=== PATIENT | male | born 1985 | race Caucasian/White ===

== ENCOUNTER 2020-08-17 08:33 | Observation (INO) | payer OTHER, MEDICAID, SELFPAY ==
[2020-08-17] VITALS (22 sets, daily range): BP systolic 112–151; BP diastolic 57–84; PULSE 61–91; RESP 13–18; TEMP 36.2–36.8; O2SAT 94–100; BMI 23.7
--- NOTE | 2020-08-17 | PATH_ITS ---
[facility] Accession Number: [id number] . 01 Material submitted: . appendix - APPENDIX . 02 Diagnosis: Appendix, Appendectomy: Acute suppurative appendicitis with serositis. Inked resection margin shows marked active inflammation and ischemia-type changes. Negative for dysplasia or malignancy. [facility] 08/23/2020 1501 Local . 02 Electronically signed: . Sharri Bryant MD, Pathologist NPI- [id number] . 01 Gross description: . The specimen is received in formalin, labeled appendix and consists of a 6.0 cm in length by 1.5 cm in diameter vermiform appendix with attached vines-yellow lobulated mesoappendix measuring 5.0 x 1.5 x 1.0 cm. The serosa is vines-pink and smooth. The margin is disrupted and open. Sectioning reveals a lumen measuring 0.5 cm in diameter, which contains brown fecal material. Die Operator sections are submitted to include the en face margin (blue), central cross-sections and bisected tips in cassettes A1-A2. (EA:[id number]) /MRV 08/22/2020 1432 Local . 02 Pathologist provided ICD-10: K35.80 . 02 CPT . 660856 Performed at: 01 [facility] [address], [place], [place] [id number] MD Carlos Porter MD Phone: [phone] Performed at: 02 [facility] [address] [place], [place] [id number] MD Sharri Bryant MD Phone: [phone]
--- NOTE | 2020-08-17 09:05 | ED_ITS ---
HPI - General Adult General Chief complaint: Abdominal Pain Stated complaint: abd pain, thinks appendix Time Seen by Provider: 08/17/20 08:37 Source: patient Mode of arrival: Ambulatory Limitations: no limitations History of Present Illness HPI narrative: Patient is a 34-year-old otherwise healthy male with no prior abdominal surgeries here for evaluation of right lower quadrant abdominal pain. He states that 2 or 3 days ago he started having pain around his belly button. During this time he did not have any fevers but reported no appetite. No change in bowel habits or urine habits during this time. Has had some nausea but no vomiting. He states that within the past 8-12 hours the pain has now radiated down to his right lower quadrant. He states that his appetite did return somewhat this morning and he ate approximately 1 hour prior to arrival here in the ER. Again reports no change in urine or bowel movements. No testicular pain. Related Data Home Medications Medication Instructions Recorded Confirmed dextroamphetamine-amphetamine 20 mg PO TID 08/17/20 08/17/20 hydroxyzine HCl 25 mg PO BID PRN 08/17/20 08/17/20 quetiapine 50 mg PO BEDTIME 08/17/20 08/17/20 tizanidine 4 mg PO TID PRN 08/17/20 08/17/20 Previous Rx's Medication Instructions Recorded docusate sodium 100 mg PO BID #20 cap 08/17/20 oxycodone 5 mg PO Q6H PRN #20 tab 08/17/20 Allergies Allergy/AdvReac Type Severity Reaction Status Date / Time amoxicillin Allergy Severe Anaphylaxis Verified 08/17/20 12:34 Penicillins Allergy Severe Anaphylaxis Verified 08/17/20 12:34 Review of Systems Constitutional Constitutional: Denies fever(s) and Denies headache(s) ENT Ears, Nose, Mouth, and Throat: Denies headache(s) Cardiovascular Cardiovascular: Denies chest pain and Denies dyspnea Respiratory Respiratory: Denies dyspnea Gastrointestinal Gastrointestinal: Reports abdominal pain, Denies change in bowel habits, Denies constipation, Denies diarrhea, Reports nausea and Denies vomiting Genitourinary Genitourinary: Denies dysuria, Denies urinary incontinence and Denies urinary urgency Genitourinary: Denies dysuria, Denies urinary incontinence and Denies urinary urgency Musculoskeletal Musculoskeletal: Denies back pain Integumentary/Breasts Skin/Breast: Denies lesions and Denies rash Neurologic Neurologic: Denies behavioral changes and Denies headache(s) Psychiatric Psychiatric: Denies behavioral changes Hematologic/Lymphatic On Anticoagulants: No Allergic/Immunologic Allergic/Immunologic: Denies urticaria Patient History Medical History ADHD Anxiety Bipolar depression Smoker Social History household members: spouse Smoking Status: Current every day smoker alcohol intake: former Exam Initial Vital Signs Initial Vital Signs: Vital Signs Temperature 98.3 F 08/17/20 08:59 Pulse Rate 91 H 08/17/20 08:59 Respiratory Rate 17 08/17/20 08:59 Blood Pressure 151/79 H 08/17/20 08:59 Pulse Oximetry 100 08/17/20 08:59 Const General: cooperative and comfortable Limitations: mental status not altered HENMT Head: normal to inspection and normocephalic Resp Effort & Inspection: normal respiratory effort Auscultation: clear to auscultation bilaterally Cardio Rate: regular rate Rhythm: regular rhythm GI Inspection: non-distended Palpation: soft, No firm and tender (Right lower quadrant with rebounding guarding) Back/Spine/Pelvis Back: No CVA tenderness Skin Lesions: no lesions Rashes: no rashes Neuro General: patient alert Cognition: normal cognition Speech: speech normal Extrem General: capillary refill normal Psych Appearance: grossly normal and well kempt Course Orders Ordered: Discontinued Medications Acetaminophen (Acetaminophen 325 Mg Tablet) 975 mg PO NOW ONE Stop: 08/17/20 12:57 Last Admin: 08/17/20 13:18 Dose: 975 mg Documented by: JHONATAN Albuterol (Albuterol 2.5 Mg/3 Ml Neb (Adult)) 2.5 mg INH NOW PRN PRN Reason: Coughing, Wheezing, Dyspnea Benzocaine (Benzocaine/Menthol 1 Vin Pkt) 1 each PO PRN PRN PRN Reason: Sore Throat Bupivacaine HCl/Epinephrine Bitart (Bupivacaine 0.5% W/ Epi (Pf) 30 Ml Vial) 30 ml INJ NOW ONE Stop: 08/17/20 14:16 Last Admin: 08/17/20 14:15 Dose: 30 ml Documented by: HUGH Hydromorphone HCl (Hydromorphone 0.5 Mg Inj) 0.5 mg IV NOW ONE Stop: 08/17/20 11:17 Last Admin: 08/17/20 12:12 Dose: 0.5 mg Documented by: CATRACHITA Hydromorphone HCl (Hydromorphone 2 Mg Inj) 0 mg IV Q5M PRN PRN Reason: Pain, Moderate (4-6) Hydromorphone HCl (Hydromorphone 2 Mg Inj) 0 mg IV Q5M PRN PRN Reason: pain Hydroxyzine HCl (Hydroxyzine 50 Mg/Ml Inj) 25 mg IM NOW PRN PRN Reason: Pain, Mild (1-3) Sodium Chloride (Normal Saline 0.9%) 1,000 mls @ 125 mls/hr IV CONT LAZARA Last Infusion: 08/17/20 12:15 Dose: 0 mls/hr Documented by: Admin: 08/17/20 09:25 Dose: 125 mls/hr Documented by: JAMEE Clindamycin Phosphate (Cleocin) 900 mg in 50 mls @ 50 mls/hr IV NOW ONE Stop: 08/17/20 12:07 Last Infusion: 08/17/20 13:11 Dose: 0 mls/hr Documented by: Infusion: 08/17/20 12:15 Dose: 0 mls/hr Documented by: Admin: 08/17/20 12:04 Dose: 50 mls/hr Documented by: CATRACHITA Metronidazole (Flagyl) 500 mg in 100 mls @ 100 mls/hr IV NOW ONE Stop: 08/17/20 12:15 Ceftriaxone Sodium/Dextrose (Rocephin) 1 gm in 50 mls @ 100 mls/hr IV NOW ONE Stop: 08/17/20 11:46 Lactated Ringer's (Lactated Ringers) 1,000 mls @ 42 mls/hr IV NOW ONE Stop: 08/18/20 12:14 Last Admin: 08/17/20 15:02 Dose: 42 mls/hr Documented by: JOSE ANGEL Infusion: 08/17/20 15:02 Dose: 42 mls/hr Documented by: Admin: 08/17/20 12:26 Dose: 42 mls/hr Documented by: JHONATAN Lactated Ringer's (Lactated Ringers) 1,000 mls @ 42 mls/hr IV CONT LAZARA Famotidine (Pepcid) 20 mg in 50 mls @ 200 mls/hr IV NOW ONE Stop: 08/17/20 13:10 Last Admin: 08/17/20 13:11 Dose: 200 mls/hr Documented by: JHONATAN Metoclopramide HCl 10 mg/ (Sodium Chloride) 52 mls @ 208 mls/hr IV NOW ONE Stop: 08/17/20 12:57 Lorazepam (Lorazepam 2 Mg/Ml Inj) 0.25 mg IV NOW PRN PRN Reason: Anxiety Metoclopramide HCl (Metoclopramide 10 Mg/2 Ml Inj) 10 mg IV NOW ONE Stop: 08/17/20 13:31 Last Admin: 08/17/20 13:31 Dose: 10 mg Documented by: JOSE ANGEL Metoclopramide HCl (Metoclopramide 10 Mg/2 Ml Inj) 10 mg IV NOW PRN PRN Reason: Nausea And Vomiting Morphine Sulfate (Morphine 4 Mg/Ml Inj) 4 mg IV NOW ONE Stop: 08/17/20 09:22 Last Admin: 08/17/20 09:27 Dose: 4 mg Documented by: JAMEE Morphine Sulfate (Morphine 4 Mg/Ml Inj) 4 mg IV NOW ONE Stop: 08/17/20 10:12 Last Admin: 08/17/20 10:14 Dose: 4 mg Documented by: JAMEE Nicotine (Nicotine 21 Mg Patch) 21 mg TOP NOW ONE Stop: 08/17/20 10:12 Last Admin: 08/17/20 10:41 Dose: 21 mg Documented by: SELVIN Ondansetron HCl (Ondansetron 4 Mg/2 Ml Inj) 4 mg IV NOW ONE Stop: 08/17/20 09:22 Last Admin: 08/17/20 09:28 Dose: 4 mg Documented by: JAMEE Ondansetron HCl (Ondansetron 4 Mg/2 Ml Inj) 4 mg IV NOW PRN PRN Reason: Nausea And Vomiting Oxycodone HCl (Oxycodone Ir 5 Mg Tablet) 5 mg PO PACUNOW PRN PRN Reason: Mild or moderate pain Last Admin: 08/17/20 16:57 Dose: 5 mg Documented by: Admin: 08/17/20 15:55 Dose: 5 mg Documented by: VIV Vital Signs Vital signs: Vital Signs - 8 hr 08/17/20 08:59 08/17/20 09:20 08/17/20 09:30 Temperature 98.3 F Pulse Rate 91 H 90 85 Respiratory Rate 17 17 Blood Pressure 151/79 H 120/64 Pulse Oximetry 100 100 100 Medical Decision Making Lab Data Lab results reviewed: Yes I reviewed the patient's lab results. Result diagrams: 08/17/20 09:05 08/17/20 09:05 Labs: Lab Results 08/17/20 08/17/20 08/17/20 Range/Units 09:05 09:05 09:05 WBC 16.4 H (4.5-11.0) X10^3/uL RBC 4.87 (4.5-5.9) X10^6/uL Hgb 14.5 (13.5-17.5) g/dL Hct 44.2 (41-53) % MCV 90.7 (80-100) fL MCH 29.8 (26-34) PG MCHC 32.9 (30-36) % RDW 13.7 (11.6-14.8) % Plt Count 241 (150-400) X10^3/uL Neut % (Auto) 76.9 H (50-75) % Lymph % (Auto) 12.7 L (25-40) % [place] % (Auto) 8.0 (3-14) % Eos % (Auto) 2.0 (2-4) % Baso % (Auto) 0.4 (0-2) % Neut # (Auto) 96904 H (1226-7695) /uL Lymph # (Auto) 2100 (4848-7242) /uL [place] # (Auto) 1300 H (0-900) /uL Eos # (Auto) 300 (0-450) /uL Baso # (Auto) 100 (0-100) /uL PT Cancelled INR Cancelled APTT Cancelled Sodium 139 (137-145) mmol/L Potassium 4.1 (3.4-5.1) mmol/L Chloride 105 (98-107) mmol/L Carbon Dioxide 30 (22-32) mmol/L BUN 14 (9-20) mg/dL Creatinine 0.88 (0.66-1.25) mg/dL Estimated GFR > 60.0 (>60) mL/min BUN/Creatinine Ratio 15.9 (6-22) Glucose 82 (70-100) mg/dL Calcium 9.2 (8.4-10.2) mg/dL Total Bilirubin 0.4 (0.2-1.3) mg/dL AST 24 (17-59) IU/L ALT 20 (<50) IU/L Alkaline Phosphatase 82 (38-126) U/L Total Protein 7.0 (6.3-8.2) g/dL Albumin 4.2 (3.5-5.0) g/dL Globulin 2.8 (1.7-4.1) g/dL Albumin/Globulin Ratio 1.5 (1.0-2.8) Lipase 87 (23-300) U/L SARS-CoV-2 (PCR) (Negative) 08/17/20 Range/Units 09:25 WBC (4.5-11.0) X10^3/uL RBC (4.5-5.9) X10^6/uL Hgb (13.5-17.5) g/dL Hct (41-53) % MCV (80-100) fL MCH (26-34) PG MCHC (30-36) % RDW (11.6-14.8) % Plt Count (150-400) X10^3/uL Neut % (Auto) (50-75) % Lymph % (Auto) (25-40) % [place] % (Auto) (3-14) % Eos % (Auto) (2-4) % Baso % (Auto) (0-2) % Neut # (Auto) (0934-5687) /uL Lymph # (Auto) (2112-4447) /uL [place] # (Auto) (0-900) /uL Eos # (Auto) (0-450) /uL Baso # (Auto) (0-100) /uL PT INR APTT Sodium (137-145) mmol/L Potassium (3.4-5.1) mmol/L Chloride (98-107) mmol/L Carbon Dioxide (22-32) mmol/L BUN (9-20) mg/dL Creatinine (0.66-1.25) mg/dL Estimated GFR (>60) mL/min BUN/Creatinine Ratio (6-22) Glucose (70-100) mg/dL Calcium (8.4-10.2) mg/dL Total Bilirubin (0.2-1.3) mg/dL AST (17-59) IU/L ALT (<50) IU/L Alkaline Phosphatase (38-126) U/L Total Protein (6.3-8.2) g/dL Albumin (3.5-5.0) g/dL Globulin (1.7-4.1) g/dL Albumin/Globulin Ratio (1.0-2.8) Lipase (23-300) U/L SARS-CoV-2 (PCR) Negative (Negative) Imaging Data CT scan - abdomen/pelvis: Radiologist's Impression: [address] [address] Scan ReportSigned Patient: Corey Philip TMR#: [id number]: 1985Acct:[id number]/Sex: 34 / MDate of Service: 08/17/20Loc: EDAccession Number: [id number] Procedure: CT abdomen pelvis w con Ordering Provider: Jayson Membreno D.O. PROCEDURE: CT ABDOMEN PELVIS W CON INDICATIONS: Right lower quadrant abdominal pain eval for appy TECHNIQUE: After the administration of intravenous contrast, 5 mm thick sections acquired from the diaphragm to the symphysis. 5 mm coronal and sagittal reformats were acquired. For radiation dose reduction, the following was used: automated exposure control, adjustment of mA and/or kV according to patient size. COMPARISON: None. FINDINGS: Image quality: Excellent. ABDOMEN: Lung bases: Lung bases are clear. Heart size is normal. Solid organs: Liver is enlarged with steatosis. Gallbladder is contracted. Biliary system is non dilated. Pancreas enhances normally. Spleen is normal in size and enhancement. No adrenal nodules. Kidneys demonstrate normal size and enhancement, without hydronephrosis. Peritoneum and bowel: Bowel loops are nonobstructive. There is a thickened appearance of the appendix measuring approximately 10 mm with surrounding inflammatory change. No evidence of perforation. No abscess or appendicoliths. Nodes and vessels: No retroperitoneal or mesenteric adenopathy by size criteria. Aorta and inferior vena cava are normal in size. Miscellaneous: No ventral hernias. PELVIS: Genitourinary: Bladder wall thickness is normal. Miscellaneous: No inguinal hernias or adenopathy. Bones: No suspicious bony lesions. No vertebral body compression fractures. IMPRESSION: 1. Enlarged appendix with inflammatory change consistent with appendicitis. The above findings were conveyed to Dr. Jayson Membreno on 08/17/2020 at 8:57am AKST. Dictated by: Cortney Butler M.D. on 08/17/2020 at 8:55 Approved by: Cortney Butler M.D. on 08/17/2020 at 9:12 MDM Narrative Medical decision making narrative: Physical exam and CT scan concerning for appendicitis. Discussed the case with Dr. Vargas with General surgery who will admit for further evaluation treatment. Discussed the findings with the patient. He expressed understanding and agreement. Discharge Plan Departure Patient Disposition: Admitted as Observation Clinical Impression: Acute appendicitis Qualifiers: Acute appendicitis type: with localized peritonitis Appendicitis gangrene pres ence: unspecified whether gangrene present Appendicitis perforation presence: unspecified whether perforation present Appendicitis abscess presence: unspecified whether abscess present Qualified Code(s): K35.30 - Acute a ppendicitis with localized peritonitis, without perforation or gangrene Admit Date/Time: 08/17/20 10:38 Admit Provider: Anamaria Vargas
[2020-08-17 09:15] LABS: Add Manual Diff / Slide Review NO; Basophils Absolute Auto 100 /uL (0-100); Basophils Percent Auto 0.4 % (0-2); Eosinophils Absolute Auto 300 /uL (0-450); Hematocrit 44.2 % (41-53); Hemoglobin 14.5 g/dL (13.5-17.5); Lymphocytes Absolute Auto 2100 /uL (1100-4500); Lymphocytes Percent Auto 12.7 % (25-40); Mean Corpuscular HGB Conc 32.9 % (30-36); Mean Corpuscular Hemoglobin 29.8 PG (26-34); Mean Corpuscular Volume 90.7 fL (80-100); Monocytes Absolute Auto 1300 /uL (0-900); Neutrophils Absolute Auto 12600 /uL (1500-7000); Neutrophils Percent Auto 76.9 % (50-75); Platelet Count 241 X10^3/uL (150-400); Red Blood Cell Count 4.87 X10^6/uL (4.5-5.9); Red Cell Distribution Width 13.7 % (11.6-14.8); White Blood Cell Count 16.4 X10^3/uL (4.5-11.0)
[2020-08-17] MEDS: SODIUM CHLORIDE 0.9% 1,000 ML 125 ML IV (09:25)
[2020-08-17 09:26] LABS: Alanine Aminotransferase 20 IU/L (<50); Albumin 4.2 g/dL (3.5-5.0); Albumin Globulin Ratio 1.5 (1.0-2.8); Alkaline Phosphatase 82 U/L (38-126); Aspartate Aminotransferase 24 IU/L (17-59); BUN Creatinine Ratio 15.9 (6-22); Bilirubin Total 0.4 mg/dL (0.2-1.3); Blood Urea Nitrogen 14 mg/dL (9-20); Calcium 9.2 mg/dL (8.4-10.2); Carbon Dioxide 30 mmol/L (22-32); Chloride 105 mmol/L (98-107); Estimated Glomerular Filt Rate > 60.0 mL/min (>60); Globulin 2.8 g/dL (1.7-4.1); Glucose 82 mg/dL (70-100); HEMOLYSIS 19 (0-50); Lipase 87 U/L (23-300); Potassium 4.1 mmol/L (3.4-5.1); Sodium 139 mmol/L (137-145)
[2020-08-17] MEDS: MORPHINE 4 MG/ML INJ IV ×2 (09:27→10:14)
[2020-08-17] MEDS: ONDANSETRON 4 MG/2 ML INJ IV (09:28)
--- NOTE | 2020-08-17 09:30 | DI.CT.S_ITS ---
PROCEDURE: CT ABDOMEN PELVIS W CON INDICATIONS: Right lower quadrant abdominal pain eval for appy TECHNIQUE: After the administration of intravenous contrast, 5 mm thick sections acquired from the diaphragm to the symphysis. 5 mm coronal and sagittal reformats were acquired. For radiation dose reduction, the following was used: automated exposure control, adjustment of mA and/or kV according to patient size. COMPARISON: None. FINDINGS: Image quality: Excellent. ABDOMEN: Lung bases: Lung bases are clear. Heart size is normal. Solid organs: Liver is enlarged with steatosis. Gallbladder is contracted. Biliary system is non dilated. Pancreas enhances normally. Spleen is normal in size and enhancement. No adrenal nodules. Kidneys demonstrate normal size and enhancement, without hydronephrosis. Peritoneum and bowel: Bowel loops are nonobstructive. There is a thickened appearance of the appendix measuring approximately 10 mm with surrounding inflammatory change. No evidence of perforation. No abscess or appendicoliths. Nodes and vessels: No retroperitoneal or mesenteric adenopathy by size criteria. Aorta and inferior vena cava are normal in size. Miscellaneous: No ventral hernias. PELVIS: Genitourinary: Bladder wall thickness is normal. Miscellaneous: No inguinal hernias or adenopathy. Bones: No suspicious bony lesions. No vertebral body compression fractures. IMPRESSION: 1. Enlarged appendix with inflammatory change consistent with appendicitis. The above findings were conveyed to Dr. Jayson Membreno on 08/17/2020 at 8:57am AKST. Dictated by: Cortney Butler M.D. on 08/17/2020 at 8:55 Approved by: Cortney Butler M.D. on 08/17/2020 at 9:12
[2020-08-17 09:46] LABS: COVID19 -Nasal RAPID Negative (Negative)
[2020-08-17] MEDS: NICOTINE 21 MG PATCH TOP (10:41)
--- NOTE | 2020-08-17 12:00 | P.HP_ITS ---
History of Present Illness History of Present Illness Date Patient Seen: 08/17/20 Time Patient Seen: 12:00 Chief complaint: abd pain, thinks appendix Narrative: This is a 34-year-old man who came into the ER today for RLQ pain. Per report, he has had 2 - 3 days of pain, starting around the umbilicus. The pain gradually became more focal in the RLQ. WBC is 16.5 in the ER, and CT scan is consistent with early acute appendicitis. ROS: Constitutional: Denies fever(s) and Denies headache(s) Ears, Nose, Mouth, and Throat: Denies headache(s) Cardiovascular: Denies chest pain and Denies dyspnea Respiratory: Denies dyspnea Gastrointestinal: Reports abdominal pain, Denies change in bowel habits, Denies constipation, Denies diarrhea, Reports nausea and Denies vomiting Genitourinary: Denies dysuria, Denies urinary incontinence and Denies urinary urgency Musculoskeletal: Denies back pain Skin/Breast: Denies lesions and Denies rash Neurologic: Denies behavioral changes and Denies headache(s) Psychiatric: Denies behavioral changes Allergic/Immunologic: Denies urticaria PE: GENERAL: Alert, mild distress. Appears stated age. Answers questions promptly and appropriately. Vital signs noted. HENT: Normocephalic, atraumatic. Hearing intact. EYES: Conjunctiva pink, sclera white, no periorbital swelling. CARDIOVASCULAR: Regular rate. No pedal edema. RESPIRATORY: Non-tachypneic, breathing comfortably on room air. GASTROINTESTINAL: Abdomen soft and non-distended; positive Rovsing sign, exquisite right lower quadrant tenderness GENITALURINARY: No left flank tenderness. Positive right flank tenderness MUSCULOSKELETAL: Equal tone and mass bilaterally. SKIN: Warm, dry, soft, appropriate color for ethnicity. No other lesions, rashes, or wounds. NEURO: Alert and Oriented X 3. No gross sensory deficits, or cognitive issues. PSYCH: Appropriate affect and mood. Patient History Medical History ADHD Anxiety Bipolar depression Smoker Family & Social History Safety & Behavioral: Feels Safe in Current Yes Environment Been Physically Hurt or No Threatened By a Person Tobacco & Substance use: Smoking Status Current every day smoker alcohol intake frequency other Substance Use Type marijuana Meds Home Medications and Allergies Home Medications Medication Instructions Recorded Confirmed Type dextroamphetamine-amphetamine 20 mg PO TID 08/17/20 08/17/20 History hydroxyzine HCl 25 mg PO BID PRN 08/17/20 08/17/20 History quetiapine 50 mg PO BEDTIME 08/17/20 08/17/20 History tizanidine 4 mg PO TID PRN 08/17/20 08/17/20 History Allergies Allergy/AdvReac Type Severity Reaction Status Date / Time amoxicillin Allergy Severe Anaphylaxis Verified 08/17/20 12:34 Penicillins Allergy Severe Anaphylaxis Verified 08/17/20 12:34 Exam Vital Signs (past 8 hours): - 08/17/20 08:59 08/17/20 09:20 08/17/20 09:30 Temperature 98.3 F Pulse Rate 91 H 90 85 Respiratory Rate 17 17 Blood Pressure 151/79 H 120/64 Pulse Oximetry 100 100 100 08/17/20 09:48 08/17/20 10:00 08/17/20 10:04 Temperature Pulse Rate 71 67 74 Respiratory Rate Blood Pressure 127/84 113/73 Pulse Oximetry 100 99 100 08/17/20 10:30 08/17/20 10:44 Temperature Pulse Rate 84 Respiratory Rate 14 Blood Pressure 116/72 116/72 Pulse Oximetry 100 Oxygen Delivery Method Room Air Objective Imaging CT scan - abdomen: Radiologist's impression: [address] Scan ReportSigned Patient: Corey Philip TMR#: [id number]: 1985Acct:[id number]/Sex: 34 / MDate of Service: 08/17/20Loc: EDAccession Number: [id number] Procedure: CT abdomen pelvis w con Ordering Provider: Jayson Membreno D.O. PROCEDURE: CT ABDOMEN PELVIS W CON INDICATIONS: Right lower quadrant abdominal pain eval for appy TECHNIQUE: After the administration of intravenous contrast, 5 mm thick sections acquired from the diaphragm to the symphysis. 5 mm coronal and sagittal reformats were acquired. For radiation dose reduction, the following was used: automated exposure control, adjustment of mA and/or kV according to patient size. COMPARISON: None. FINDINGS: Image quality: Excellent. ABDOMEN: Lung bases: Lung bases are clear. Heart size is normal. Solid organs: Liver is enlarged with steatosis. Gallbladder is contracted. Biliary system is non dilated. Pancreas enhances normally. Spleen is normal in size and enhancement. No adrenal nodules. Kidneys demonstrate normal size and enhancement, without hydronephrosis. Peritoneum and bowel: Bowel loops are nonobstructive. There is a thickened appearance of the appendix measuring approximately 10 mm with surrounding inflammatory change. No evidence of perforation. No abscess or appendicoliths. Nodes and vessels: No retroperitoneal or mesenteric adenopathy by size criteria. Aorta and inferior vena cava are normal in size. Miscellaneous: No ventral hernias. PELVIS: Genitourinary: Bladder wall thickness is normal. Miscellaneous: No inguinal hernias or adenopathy. Bones: No suspicious bony lesions. No vertebral body compression fractures. IMPRESSION: 1. Enlarged appendix with inflammatory change consistent with appendicitis. The above findings were conveyed to Dr. Jayson Membreno on 08/17/2020 at 8:57am AKST. Dictated by: Cortney Butler M.D. on 08/17/2020 at 8:55 Approved by: Cortney Butler M.D. on 08/17/2020 at 9:12 Labs Result Diagrams: 08/17/20 09:05 08/17/20 09:05 Labs: Laboratory Results - last 24 hr 08/17/20 08/17/20 08/17/20 09:05 09:05 09:05 WBC 16.4 H RBC 4.87 Hgb 14.5 Hct 44.2 MCV 90.7 MCH 29.8 MCHC 32.9 RDW 13.7 Plt Count 241 Neut % (Auto) 76.9 H Lymph % (Auto) 12.7 L [place] % (Auto) 8.0 Eos % (Auto) 2.0 Baso % (Auto) 0.4 Neut # (Auto) 35631 H Lymph # (Auto) 2100 [place] # (Auto) 1300 H Eos # (Auto) 300 Baso # (Auto) 100 PT Cancelled INR Cancelled APTT Cancelled Sodium 139 Potassium 4.1 Chloride 105 Carbon Dioxide 30 BUN 14 Creatinine 0.88 Estimated GFR > 60.0 BUN/Creatinine Ratio 15.9 Glucose 82 Calcium 9.2 Total Bilirubin 0.4 AST 24 ALT 20 Alkaline Phosphatase 82 Total Protein 7.0 Albumin 4.2 Globulin 2.8 Albumin/Globulin Ratio 1.5 Lipase 87 SARS-CoV-2 (PCR) 08/17/20 09:25 WBC RBC Hgb Hct MCV MCH MCHC RDW Plt Count Neut % (Auto) Lymph % (Auto) [place] % (Auto) Eos % (Auto) Baso % (Auto) Neut # (Auto) Lymph # (Auto) [place] # (Auto) Eos # (Auto) Baso # (Auto) PT INR APTT Sodium Potassium Chloride Carbon Dioxide BUN Creatinine Estimated GFR BUN/Creatinine Ratio Glucose Calcium Total Bilirubin AST ALT Alkaline Phosphatase Total Protein Albumin Globulin Albumin/Globulin Ratio Lipase SARS-CoV-2 (PCR) Negative Assessment & Plan Assessment and plan (1) Acute appendicitis: Problem details: This is a 34-year-old man with acute appendicitis. Risks and benefits of laparoscopic possible open appendectomy were discussed with the patient including risk of bleeding, infection, damage to nearby structures, need for additional procedures, prolonged recovery, prolonged hospital stay, risk of hernia, risk of bowel obstruction. The patient desires to proceed with laparoscopic possible open appendectomy. Plan: Proceed to OR for laparoscopic possible open appendectomy Qualifiers: Acute appendicitis type: with localized peritonitis Appendicitis abscess presence: unspecified whether abscess present Appendicitis gangrene presence: unspecified whether gangrene present Appendicitis perforation presence: unspecified whether perforation present Qualified Code(s): K35.30 - Acute appendicitis with localized peritonitis, without perforation or gangrene Status: Acute (2) Smoker: Status: Acute (3) Bipolar depression: Status: Acute (4) Anxiety: Status: Acute COVID-19 COVID-19 status: Negative Result date/Date tested (Pos, Neg/Pending): 08/17/20 Quality VTE Deep Vein Thrombosis/Pulmonary Embolism Present on Admission: No
[2020-08-17] MEDS: CLINDAMYCIN 900 MG/50 ML PIGGYBACK 50 MG IV (12:04)
[2020-08-17] MEDS: HYDROMORPHONE 0.5 MG INJ IV (12:12)
--- NOTE | 2020-08-17 12:15 | PC.NURSE ---
Clindamycin continued in transport to surgery.
[2020-08-17] MEDS: LACTATED RINGERS 1,000 ML 42 ML IV ×2 (12:26→15:02)
[2020-08-17] MEDS: FAMOTIDINE 20 MG/50 ML PIGGYBACK 200 MG IV (13:11)
[2020-08-17] MEDS: ACETAMINOPHEN 325 MG TABLET 975 MG PO (13:18)
--- NOTE | 2020-08-17 13:19 | SUR.PREOP ---
confirmed with Dr. Vargas that she did not want ceftriaxone and flagyl given - she didn't order them.
[2020-08-17] MEDS: METOCLOPRAMIDE 10 MG/2 ML INJ IV (13:31)
--- NOTE | 2020-08-17 14:01 | SUR.OPER ---
Supine on padded OR bed, head on pillow, safety belt at thigh, left arm padded and tucked at side. Right arm secured on padded arm oard <90 degrees abduction. Legs uncrossed. Padded footboard in place. Tape over blanket to secure lower legs.
[2020-08-17] MEDS: BUPIVACAINE 0.5% W/ EPI (PF) 30 ML VIAL INJ (14:15)
--- NOTE | 2020-08-17 15:35 | P.OP_ITS ---
Operative Date/Time/Diagnoses Date of procedure: 08/17/20 Time of procedure: 15:35 Pre-op diagnosis: Acute appendicitis Post-op diagnosis: same Procedure & Clinicians Procedure: Laparoscopic appendectomy Same procedure as scheduled: Yes Indications: Acute appendicitis Surgeon: Anamaria Vargas Click Yes if Unassisted: Yes Anesthesia Type: General Operative Notes Findings: Thickened inflamed non perforated appendix, with multiple accessory vessels going to the appendix and mesoappendix. Specimen(s): other (Appendix) Estimated Blood Loss (mL): 35 Procedure in detail: The patient was brought into the operating room and placed supine on the OR table. Sequential compression devices were placed on both legs and turned on. 3.375 gm of Zosyn was given prior to the start of surgery. General anesthesia was induced the patient was intubated. Kumar catheter was placed sterilely in the bladder. The abdomen was prepped and draped in sterile fashion. Surgical time-out was conducted. Local anesthetic was injected under the skin just superior to the umbilicus and a 5 mm vertical incision was made at this site. The umbilical stalk was grasped with a Marizol and elevated. A Veress needle was passed through the fascia into proper position. The position was tested with a saline drop test which was appropriate for intra-abdominal Veress needle placement. The abdomen was then insufflated in the usual fashion. Once insufflated to 15 mm Hg the Veress needle was removed and a 5 mm optical trocar was placed under direct vision using a 5 mm 30 degree scope. Once the camera was inside the abdomen I took a look around. There was no injury from port placement. Two additional ports were placed in a similar fashion in the suprapubic position and left lower quadrant. The umbilical port was upsized to a 12 mm port. I took a look at the cecum and right lower quadrant, and the appendix was seen t hickened, firm, and adherent to the surrounding structures. There were dense vascular adhesions of the appendix to the abdominal wall, cecum, and terminal ileum. These were carefully divided using LigaSure. Bleeding was controlled with LigaSure. The mesoappendix was thickened and woody. Multiple accessory vessels in the mesoappendix were controlled with LigaSure. I dissected my way down the appendix to its junction with the cecum. At its base, the appendix was pliable. Once all of the mesoappendix and surrounding adhesions were divided and hemostatic, 2 Endoloops were placed at the base of the appendix, and the appendix was divided with LigaSure leaving the endo-loops in place on the cecum. The appendix was then placed into an Endo-Catch bag, and removed through the umbilical port site. It was passed off the table for pathology. I then took another look at the right lower quadrant, irrigated to check for any ongoing bleeding. There was no evidence of ongoing bleeding. The endo-loops were in good position, and the cecum was hemostatic. I then used the laparoscopic suture passer and closed the umbilical port site with 0 Vicryl suture through the fascia. Local anesthetic was used in this site and the other 2 port sites for a total of 30 mL of 0.5% Marcaine with epi for the entire case. At this point the insufflation was removed from the abdomen and the port sites were closed with, 3-0 Vicryl in the subcutaneous layers, and 4 Monocryl in the skin. Each port site was sealed with Dermabond. Local anesthetic was given at each of the port sites and in the fascia. This concluded the procedure. At this point the needle sponge and instrument counts were correct. The patient was awakened from anesthesia and extubated. Kumar catheter was removed without incident. The patient was transferred to the postanesthesia care unit in stable condition. Complications: none Post-operative Condition: stable Disposition: PACU
[2020-08-17] MEDS: OXYCODONE IR 5 MG TABLET PO ×2 (15:55→16:57)
== END 2020-08-17 17:15 | disposition home or self-care (01) ==
LOC: ED 10:12 → AC 10:38
PROVIDERS: Admitting Provider Surgery; Emergency Provider Emergency Medicine; PCP Family Medicine Adult Medicine; Referring Provider Emergency Medicine; Visit Provider Surgery
PROC: 0DTJ4ZZ Resection of Appendix, Percutaneous Endoscopic Approach (ICD-10-PCS; CPT 44970; principal; 2020-08-17 12:30)
DX: K35.80 Unspecified acute appendicitis (principal); F17.200 Nicotine dependence, unspecified, uncomplicated; F31.9 Bipolar disorder, unspecified; F41.9 Anxiety disorder, unspecified; Z20.822 Contact with and (suspected) exposure to COVID-19
CPT/HCPCS: 44970; 36415; 74177; 80053; 81003; 83690; 85025; 87635; 96361; 96374; 96375; 96376; 99219; 99284; C9803; G0378; J0330; J1100; J1170; J2250; J2270; J2405; J2704; J2765; J3010; Q9967

== ENCOUNTER 2020-08-23 19:38 | Emergency (ER) | payer OTHER, MEDICAID, SELFPAY ==
[2020-08-23] VITALS (10 sets, daily range): BP systolic 114–122; BP diastolic 65–68; PULSE 73–83; RESP 18; TEMP 36.8; O2SAT 93–99; BMI 24.5
--- NOTE | 2020-08-23 19:53 | ED_ITS ---
HPI - General Adult General Chief complaint: Abdominal Pain Stated complaint: severe pain s/p appy [id number] Time Seen by Provider: 08/23/20 19:53 Source: patient Mode of arrival: Wheelchair Limitations: no limitations History of Present Illness HPI narrative: 34-year-old gentleman with a history of bipolar type 1 disorder ADHD with recent acute appendicitis and appendectomy on 08/17/2020. He has continued to have abdominal pain post surgery. Was apparently seen and evaluated on the in [place] with the repeat CT done that did not show acute findings. He continues to have severe pain, today his having difficulty walking because of the pain, he is having fevers and chills and comes in for additional evaluation. Related Data Home Medications Medication Instructions Recorded Confirmed dextroamphetamine-amphetamine 20 mg PO TID 08/17/20 08/17/20 hydroxyzine HCl 25 mg PO BID PRN 08/17/20 08/17/20 quetiapine 50 mg PO BEDTIME 08/17/20 08/17/20 tizanidine 4 mg PO TID PRN 08/17/20 08/17/20 Previous Rx's Medication Instructions Recorded docusate sodium 100 mg PO BID #20 cap 08/17/20 ondansetron 8 mg PO Q8H PRN #20 tab 08/17/20 oxycodone 5 mg PO Q6H PRN #20 tab 08/17/20 cephalexin 500 mg PO TID #21 cap 08/23/20 oxycodone-acetaminophen 1 tab PO Q6H PRN #14 tab 08/23/20 Allergies Allergy/AdvReac Type Severity Reaction Status Date / Time amoxicillin Allergy Severe Anaphylaxis Verified 08/17/20 12:34 Penicillins Allergy Severe Anaphylaxis Verified 08/17/20 12:34 Review of Systems Review of Systems Narrative: Pertinent positive and negative findings as per HPI Remainder of review of systems is otherwise unremarkable for ENT: No sore throat, neck pain, ear pain CV: Chest pain, palpitations, Respiratory: Cough, wheeze, dyspnea GI: Nausea, vomiting, diarrhea, change in bowel habits, black or bloody stools : Dysuria, hematuria, flank pain Patient History Medical History ADHD Anxiety Bipolar depression Smoker Surgical History History of appendectomy Social History household members: spouse Smoking Status: Current every day smoker alcohol intake: former Smoking Status: Current every day smoker tobacco type: cigarettes alcohol intake frequency: other Substance Use Type: marijuana Exam Narrative Exam Narrative: General: Healthy appearing, in significant pain. Able to give a complete and coherent history. Well-nourished well-developed HEENT: Moist mucous membranes, normal sclera with reactive pupils, Neck: No JVD, supple Respiratory: Lungs are clear to auscultation, no wheezing no rales no rhonchi. Full and symmetrical air movement Cardiac: Regular rate and rhythm no murmurs no bruits Abdomen: Diffusely tender worst amount of tenderness is just above the umbilicus and to the right of the umbilicus. Umbilical incision is slightly erythematous with some mild drainage without extending erythema. Abdomen is quite firm with rebound and hypoactive to absent bowel tones Skin: Warm and dry, no rashes Neurologic: Grossly neurologically intact with no obvious asymmetries or abn ormalities Extremities: No trauma, well perfused Psych: Cooperative, appropriate insight and affect Initial Vital Signs Initial Vital Signs: Vital Signs Pulse Rate 83 08/23/20 19:44 Blood Pressure 122/68 08/23/20 19:44 Pulse Oximetry 93 08/23/20 19:44 Course Orders Ordered: ED Orders 08/23/20 20:59 CT abdomen pelvis w con Stat Urinalysis and Microscopic Stat 08/23/20 21:15 Blood Culture Stat Complete Blood Count AUTO DIFF Stat Comprehensive Metabolic Panel Stat Lactate (Lactic Acid) Stat Hydromorphone HCl (Hydromorphone 0.5 Mg Inj) 0.5 mg IV Q15MIN PRN PRN Reason: Pain, Last Admin: 08/23/20 21:26 Dose: 0.5 mg Documented by: CATRACHITA Ceftriaxone Sodium/Dextrose (Rocephin) 1 gm in 50 mls @ 100 mls/hr IV NOW ONE Stop: 08/23/20 23:20 Last Admin: 08/23/20 23:00 Dose: 100 mls/hr Documented by: Discontinued Medications Sodium Chloride (Normal Saline 0.9%) 1,000 mls @ 1,000 mls/hr IV BOLUS ONE Stop: 08/23/20 21:57 Last Admin: 03/04/21 21:25 Dose: 1,000 mls/hr Documented by: CATRACHITA Ketorolac Tromethamine (Ketorolac 60 Mg/2 Ml Vial) 15 mg IV NOW ONE Stop: 08/23/20 20:59 Last Admin: 08/23/20 21:26 Dose: 15 mg Documented by: CATRACHITA Oxycodone/Acetaminophen (Oxycodone/Acetaminophen 5/325 Tablet) 2 tab PO NOW ONE Stop: 08/23/20 22:52 Last Admin: 08/23/20 23:00 Dose: 2 tab Documented by: Oxycodone/Acetaminophen (Oxycodone/Apap 5/325 Prepack) 1 bottle MISC SEEINSTR ONE Stop: 08/23/20 22:52 Last Admin: 08/23/20 23:00 Dose: 1 bottle Documented by: Vital Signs Vital signs: Vital Signs - 8 hr 08/23/20 19:44 08/23/20 19:45 08/23/20 20:00 Temperature 98.2 F Pulse Rate 83 82 78 Respiratory Rate 18 Blood Pressure 122/68 122/66 114/65 Pulse Oximetry 93 99 98 08/23/20 20:30 08/23/20 21:00 08/23/20 21:40 Temperature Pulse Rate 80 81 75 Respiratory Rate Blood Pressure 118/66 121/66 Pulse Oximetry 98 99 99 08/23/20 22:00 Temperature Pulse Rate 75 Respiratory Rate Blood Pressure Pulse Oximetry 99 Medical Decision Making Lab Data Lab results reviewed: Yes I reviewed the patient's lab results. Result diagrams: 08/23/20 21:15 08/23/20 21:15 Labs: Lab Results 08/23/20 08/23/20 08/23/20 Range/Units 21:15 21:15 21:15 WBC 16.1 H (4.5-11.0) X10^3/uL RBC 4.66 (4.5-5.9) X10^6/uL Hgb 13.9 (13.5-17.5) g/dL Hct 41.5 (41-53) % MCV 89.0 (80-100) fL MCH 29.9 (26-34) PG MCHC 33.6 (30-36) % RDW 13.0 (11.6-14.8) % Plt Count 288 (150-400) X10^3/uL Neut % (Auto) 74.7 (50-75) % Lymph % (Auto) 11.7 L (25-40) % Daggett % (Auto) 10.6 (3-14) % Eos % (Auto) 2.3 (2-4) % Baso % (Auto) 0.7 (0-2) % Neut # (Auto) 98916 H (2619-1818) /uL Lymph # (Auto) 1900 (1934-9076) /uL Daggett # (Auto) 1700 H (0-900) /uL Eos # (Auto) 400 (0-450) /uL Baso # (Auto) 100 (0-100) /uL Sodium 135 L (137-145) mmol/L Potassium 4.3 (3.4-5.1) mmol/L Chloride 100 (98-107) mmol/L Carbon Dioxide 31 (22-32) mmol/L BUN 14 (9-20) mg/dL Creatinine 0.87 (0.66-1.25) mg/dL Estimated GFR > 60.0 (>60) mL/min BUN/Creatinine Ratio 16.1 (6-22) Glucose 89 (70-100) mg/dL Lactate 0.7 (0.7-2.1) mmol/L Calcium 9.2 (8.4-10.2) mg/dL Total Bilirubin 0.4 (0.2-1.3) mg/dL AST 38 (17-59) IU/L ALT 45 (<50) IU/L Alkaline Phosphatase 88 (38-126) U/L Total Protein 6.9 (6.3-8.2) g/dL Albumin 4.0 (3.5-5.0) g/dL Globulin 2.9 (1.7-4.1) g/dL Albumin/Globulin Ratio 1.4 (1.0-2.8) Imaging Data CT scan - abdomen/pelvis: Radiologist's Impression: FINDINGS: Image quality: Excellent. ABDOMEN: Lung bases: Lung bases are clear. Heart size is normal. Solid organs: Liver is normal in size and enhancement. Gallbladder is within normal limits. Biliary system is non dilated. Pancreas enhances normally. Spleen is normal in size and enhancement. No adrenal nodules. Kidneys demonstrate normal size and enhancement, without hydronephrosis. Peritoneum and bowel: Patient is status post interval appendectomy. No abscess collection is seen. Bowel loops demonstrate normal wall thickness and caliber. No free fluid or air. Nodes and vessels: No retroperitoneal or mesenteric adenopathy by size criteria. Aorta and inferior vena cava are normal in size. Miscellaneous: No ventral hernias. There is surgical incision in midline anterior abdominal wall with small amount of fluid and air seen at the site of incision without peripheral enhancement. PELVIS: Genitourinary: Bladder wall thickness is normal. Miscellaneous: No inguinal hernias or adenopathy. Bones: No suspicious bony lesions. No vertebral body compression fractures. IMPRESSION: 1. Small amount of fluid and tiny pockets of air seen at the site of midline lower abdominal incision site most consistent with postsurgical changes. The appearance of the fluid is not suggestive of abscess at this time. 2. Patient is status post interval appendectomy. No abscess collection is seen. No peritoneal free fluid or free air. Dictated by: Milo Maldonado M.D. on 08/23/2020 at 21:47 MDM Narrative Medical decision making narrative: Patient is re-examined. After IV Toradol and half a mg of Dilaudid his pain is dramatically better controlled. He is much more engaging and while still hurting able to function a bit more normally. Lab work is reassuring with the exception of the mild persistent leukocytosis. There is no evidence of sepsis. CT scan does not suggest intra-abdominal hematoma or abscess. No additional findings are appreciated. His umbilical incision site is slightly red and has mild drainage but no abscess on the CT scan. I am going to give him 1g of ceftriaxone in the emergency department and a prescription for Keflex. Care is reviewed with Dr. Costa, surgeon on-call. Will send him home with the antibiotics, adequate pain control and will ask him to contact the general surgery office 1st thing in the morning to be evaluated by surgeon in the morning. Given the degree of pain that he is having a week after surgery surgical consultation is completely appropriate. Discharge Plan Departure Patient Disposition: Home Clinical Impression: Abdominal wall cellulitis, Post-op pain Instructions: DI for Cellulitis -- Adult, DI for Acute Abdominal Pain Activity Restrictions/Additional Instructions: Thank you for coming in today I do not have a full explanation for the severity of your pain now 7 days after surgery. You are developing a slight cellulitis around your belly button but there is no underlying abscess or bigger complication. Your blood work is reassuring and there is no evidence of overwhelming infection or sepsis. The surgical site inside is recovering nicely and there is no absce ss or developing hematoma. Your pain was well controlled with Toradol and a small dose of IV narcotic in the emergency department Using 400 mg of ibuprofen (2 [id number] pills) and 1 Tylenol every 6 hours can be very helpful in controlling pain. For severe pain using 2 ibuprofen and 1 Percocet would be appropriate Because you are still having so much pain I did review your care with our surgeon on-call this evening. Please contact the [place] surgery office tomorrow. You do need to be seen by the surgeon to make sure that you are improving and that we are not missing an alternate reason to explain your pain. If you get worse, please return to the ER Prescriptions: New cephalexin 500 mg capsule 500 mg PO TID Qty: 21 RF: 0 oxycodone-acetaminophen 5-325 mg tablet 1 tab PO Q6H PRN (Reason: pain) Qty: 14 RF: 0 No Action tizanidine 4 mg tablet 4 mg PO TID PRN (Reason: muscle spasms) RF: 0 dextroamphetamine-amphetamine 20 mg tablet 20 mg PO TID RF: 0 hydroxyzine HCl 25 mg tablet 25 mg PO BID PRN (Reason: Anxiety) RF: 0 quetiapine 50 mg tablet 50 mg PO BEDTIME RF: 0 oxycodone 5 mg tablet 5 mg PO Q6H PRN (Reason: postoperative pain) Qty: 20 RF: 0 docusate sodium 100 mg capsule 100 mg PO BID Qty: 20 RF: 0 ondansetron 4 mg tablet,disintegrating 8 mg PO Q8H PRN (Reason: nausea and vomiting) Qty: 20 RF: 0 Referrals: Carlos Willis DO [Primary Care Provider] - Anamaria Vargas MD [Physician] -
--- NOTE | 2020-08-23 20:59 | DI.CT.S_ITS ---
PROCEDURE: CT ABDOMEN PELVIS W CON INDICATIONS: severe abd pain, post appy 08/13/2020 TECHNIQUE: After the administration of intravenous contrast, 5 mm thick sections acquired from the diaphragm to the symphysis. 5 mm coronal and sagittal reformats were acquired. For radiation dose reduction, the following was used: automated exposure control, adjustment of mA and/or kV according to patient size. COMPARISON: [facility], CT, CT ABDOMEN PELVIS W CON, 08/17/2020, 9:41. FINDINGS: Image quality: Excellent. ABDOMEN: Lung bases: Lung bases are clear. Heart size is normal. Solid organs: Liver is normal in size and enhancement. Gallbladder is within normal limits. Biliary system is non dilated. Pancreas enhances normally. Spleen is normal in size and enhancement. No adrenal nodules. Kidneys demonstrate normal size and enhancement, without hydronephrosis. Peritoneum and bowel: Patient is status post interval appendectomy. No abscess collection is seen. Bowel loops demonstrate normal wall thickness and caliber. No free fluid or air. Nodes and vessels: No retroperitoneal or mesenteric adenopathy by size criteria. Aorta and inferior vena cava are normal in size. Miscellaneous: No ventral hernias. There is surgical incision in midline anterior abdominal wall with small amount of fluid and air seen at the site of incision without peripheral enhancement. PELVIS: Genitourinary: Bladder wall thickness is normal. Miscellaneous: No inguinal hernias or adenopathy. Bones: No suspicious bony lesions. No vertebral body compression fractures. IMPRESSION: 1. Small amount of fluid and tiny pockets of air seen at the site of midline lower abdominal incision site most consistent with postsurgical changes. The appearance of the fluid is not suggestive of abscess at this time. 2. Patient is status post interval appendectomy. No abscess collection is seen. No peritoneal free fluid or free air. Dictated by: Milo Maldonado M.D. on 08/23/2020 at 21:47 Approved by: Milo Maldonado M.D. on 08/23/2020 at 21:50
[2020-08-23] MEDS: SODIUM CHLORIDE 0.9% 1,000 ML 1000 ML IV (21:25)
[2020-08-23] MEDS: KETOROLAC 60 MG/2 ML VIAL 15 MG IV (21:26)
[2020-08-23] MEDS: HYDROMORPHONE 0.5 MG INJ IV (21:26)
[2020-08-23 21:27] LABS: Add Manual Diff / Slide Review NO; Basophils Absolute Auto 100 /uL (0-100); Basophils Percent Auto 0.7 % (0-2); Eosinophils Absolute Auto 400 /uL (0-450); Eosinophils Percent Auto 2.3 % (2-4); Hematocrit 41.5 % (41-53); Hemoglobin 13.9 g/dL (13.5-17.5); Lymphocytes Absolute Auto 1900 /uL (1100-4500); Lymphocytes Percent Auto 11.7 % (25-40); Mean Corpuscular HGB Conc 33.6 % (30-36); Mean Corpuscular Hemoglobin 29.9 PG (26-34); Monocytes Absolute Auto 1700 /uL (0-900); Monocytes Percent Auto 10.6 % (3-14); Neutrophils Absolute Auto 12000 /uL (1500-7000); Neutrophils Percent Auto 74.7 % (50-75); Platelet Count 288 X10^3/uL (150-400); Red Blood Cell Count 4.66 X10^6/uL (4.5-5.9); White Blood Cell Count 16.1 X10^3/uL (4.5-11.0)
[2020-08-23 21:38] LABS: Alanine Aminotransferase 45 IU/L (<50); Albumin Globulin Ratio 1.4 (1.0-2.8); Alkaline Phosphatase 88 U/L (38-126); Aspartate Aminotransferase 38 IU/L (17-59); BUN Creatinine Ratio 16.1 (6-22); Bilirubin Total 0.4 mg/dL (0.2-1.3); Blood Urea Nitrogen 14 mg/dL (9-20); Calcium 9.2 mg/dL (8.4-10.2); Carbon Dioxide 31 mmol/L (22-32); Chloride 100 mmol/L (98-107); Estimated Glomerular Filt Rate > 60.0 mL/min (>60); Globulin 2.9 g/dL (1.7-4.1); Glucose 89 mg/dL (70-100); HEMOLYSIS < 15 (0-50); Lactate (Lactic Acid) 0.7 mmol/L (0.7-2.1); Potassium 4.3 mmol/L (3.4-5.1); Sodium 135 mmol/L (137-145); Total Protein 6.9 g/dL (6.3-8.2)
[2020-08-23] MEDS: OXYCODONE/APAP 5/325 PREPACK 1 BOTTLE MISC (23:00)
[2020-08-23] MEDS: OXYCODONE/ACETAMINOPHEN 5/325 TABLET 2 TAB PO (23:00)
[2020-08-23] MEDS: CEFTRIAXONE 1 GM/50 ML FROZ.PIGGY IV (23:00)
== END 2020-08-24 | disposition home or self-care (01) ==
PROVIDERS: Emergency Provider Emergency Medicine; PCP Family Medicine Adult Medicine
DX: L03.311 Cellulitis of abdominal wall (principal); G89.18 Other acute postprocedural pain; R50.9 Fever, unspecified
CPT/HCPCS: 36415; 74177; 80053; 83605; 85025; 87040; 96361; 96365; 96375; 99284; J1170; J1885; Q9967

== ENCOUNTER → 2020-08-24 16:08 | Outpatient (CLI) | payer OTHER, MEDICAID, SELFPAY | PROVIDERS: PCP Family Medicine Adult Medicine; Visit Provider Specialist | DX: L03.311 Cellulitis of abdominal wall (principal); Z90.49 Acquired absence of other specified parts of digestive tract; T81.49XA Infection following a procedure, other surgical site, initial encounter; L02.216 Cutaneous abscess of umbilicus | CPT/HCPCS: 10180; 87070; 87075; 87077; 87186; 87205 ==